=== PATIENT | male | born 1960 | race Two or more races ===

== ENCOUNTER 2018-01-23 10:32 | Observation (INO) | payer MEDICARE ==
[~2018-01-23] VITALS: Ht 167.6 cm; Wt 68.0 kg
[~2018-01-23 10:32] MED LIST: ASPI-1159 PO; ATOR10TA PO; TRAM50TA3 PO; VERA180T MT; ZOLP10TA2 PO
[2018-01-23] MEDS ORDERED: SODIUM CHLORIDE 0.9% 1,000 ML IV ONE (12:56)
[2018-01-23] MEDS ORDERED: MECLIZINE 25MG TABLET PO ONE (13:00)
[2018-01-23 13:43] LABS: BASOPHILS % 0.6 % (0.0-2.0); EOSINOPHILS % 1.2 % (0.0-5.0); HEMOGLOBIN. 13.5 g/dL (14.0-18.0); LYMPHOCYTES % 27.9 % (20.0-50.0); MEAN CORPUSCULAR HEMOGLOBIN 29.7 pg (28.0-32.0); MONOCYTES % 8.8 % (2.0-8.0); NEUTROPHILS % 61.5 % (40.0-76.0); RED BLOOD CELL COUNT 4.53 mill/uL (4.7-6.1); RED CELL DISTRIBUTION WIDTH 14.9 % (11.6-14.6)
[2018-01-23 13:44] LABS: PROTHROMBIN TIME 10.6 sec (9.4-11.6)
[2018-01-23 13:47] LABS: CHLORIDE 106 mEq/L (98-107)
[2018-01-23 13:58] LABS: CREATINE KINASE MB FRACTION 2.5 ng/mL (0.5-3.6)
[2018-01-23 14:12] LABS: PARTIAL THROMBOPLASTIN TIME < 20.0 sec (23.4-31.0)
[2018-01-23] MEDS ORDERED: ASPIRIN 325MG EC TABLET PO ONE (16:30)
[2018-01-23 18:13] LABS: *AMPHETAMINES SCREEN URINE NEGATIVE (NEGATIVE); *BARBITURATES SCREEN URINE NEGATIVE (NEGATIVE); *BENZODIAZEPINES SCREEN URINE NEGATIVE (NEGATIVE); *COCAINE SCREEN URINE NEGATIVE (NEGATIVE); CANNABINOID URINE SCREEN NEGATIVE (NEGATIVE); METHADONE URINE SCREEN NEGATIVE (NEGATIVE); OPIATES URINE SCREEN PRESUMTIVE POSITIVE (NEGATIVE); PHENCYCLIDINE URINE SCREEN NEGATIVE (NEGATIVE)
[2018-01-23 20:12] VITALS: BP 150/80
[2018-01-23 20:15] VITALS: BP 144/72
[2018-01-23] MEDS ORDERED: TRAMADOL 50MG TABLET PO PRN (22:15)
[2018-01-23] MEDS ORDERED: ACETAMINOPHEN 325MG TABLET PO PRN (22:30)
[2018-01-23] MEDS ORDERED: HYDRALAZINE 20MG/ML VIAL IV PRN (22:30)
[2018-01-23] MEDS ORDERED: ZOLPIDEM TARTRATE 5MG TABLET PO PRN (22:30)
[2018-01-23] MEDS ORDERED: DEXTROSE 50% WATER 50ML SYRINGE IV PRN (22:45)
[2018-01-23] MEDS ORDERED: ATORVASTATIN CALCIUM 10MG TABLET PO SCH (23:00)
[2018-01-23] MEDS: MECLIZINE 12.5MG TABLET PO SCH (23:04)
[2018-01-23] MEDS: AMLODIPINE 5MG TABLET PO SCH (23:05)
[2018-01-24] VITALS: BP 132/67
[2018-01-24 04:00] VITALS: BP 121/69
[2018-01-24] MEDS: BLOOD SUGAR DIAGNOSTIC STRIP TEST SCH ×3 (06:05→16:45)
[2018-01-24] MEDS: INSULIN LISPRO 100 UNITS/ML SUBCUT SCH ×3 (06:05→17:55)
[2018-01-24] MEDS: MECLIZINE 12.5MG TABLET PO SCH ×2 (06:28→15:50)
[2018-01-24] MEDS ORDERED: PANTOPRAZOLE 40MG DR TABLET PO SCH (06:45)
[2018-01-24 07:40] LABS: BASOPHILS % 0.5 % (0.0-2.0); EOSINOPHILS % 1.8 % (0.0-5.0); HEMATOCRIT. 40.3 % (42.0-52.0); HEMOGLOBIN. 13.6 g/dL (14.0-18.0); LYMPHOCYTES % 32.4 % (20.0-50.0); MEAN CORPUSCULAR HEMOGLOBIN 29.1 pg (28.0-32.0); MEAN CORPUSCULAR VOLUME 86.1 fL (80.0-94.0); MEAN PLATELET VOLUME 8.2 fl (7.4-10.4); MONOCYTES % 11.8 % (2.0-8.0); NEUTROPHILS % 53.5 % (40.0-76.0); PLATELET 244 x1000/uL (130-400); RED BLOOD CELL COUNT 4.68 mill/uL (4.7-6.1)
[2018-01-24 08:00] VITALS: BP 122/68
[2018-01-24 08:06] LABS: CHLORIDE 105 mEq/L (98-107)
[2018-01-24 08:11] LABS: HDL CHOLESTEROL 49 mg/dL (40-59); LDL CHOLESTEROL 91 mg/dL (5-100)
[2018-01-24] MEDS: AMLODIPINE 5MG TABLET PO SCH (08:12)
[2018-01-24] MEDS ORDERED: ASPIRIN 81MG EC TABLET PO SCH (09:00)
[2018-01-24] MEDS ORDERED: AMLO2.5T45 PO ×2 (11:26)
[2018-01-24] MEDS ORDERED: HYDR-4001 PO (11:26)
[2018-01-24] MEDS ORDERED: GABA-529 PO (11:26)
[2018-01-24] MEDS ORDERED: METO-539 PO (11:26)
[2018-01-24] MEDS ORDERED: OMEP20CA10 PO (11:26)
[2018-01-24] MEDS ORDERED: INSLIS SUBCUT (11:28)
[2018-01-24] MEDS ORDERED: LEVVL SQ (11:28)
[2018-01-24 12:00] VITALS: BP 132/77
[2018-01-24] MEDS ORDERED: NITROGLYCERIN 0.4MG TABLET SL SL PRN (14:30)
[2018-01-24 16:00] VITALS: BP 112/65
[2018-01-24 17:30] LABS: AMMONIA 70 uMol/L (<32)
[2018-01-24 18:17] VITALS: BP 139/91
== END 2018-01-24 20:36 | disposition home or self-care (01) ==
LOC: ER 10:32 → EDBEDREQ 13:03 → ENRESERV 18:50 → INTOOBSV 21:25 → 5WST 21:25
PROVIDERS: ADMIT Internal Medicine; ATTEND Internal Medicine
DX: F31.9 Bipolar disorder, unspecified (principal); I25.110 Atherosclerotic heart disease of native coronary artery with unstable angina pectoris; R00.1 Bradycardia, unspecified; R42 Dizziness and giddiness; D64.9 Anemia, unspecified; E11.65 Type 2 diabetes mellitus with hyperglycemia; I10 Essential (primary) hypertension; I25.2 Old myocardial infarction; M19.90 Unspecified osteoarthritis, unspecified site; Z79.4 Long term (current) use of insulin; Z79.82 Long term (current) use of aspirin; Z79.899 Other long term (current) drug therapy; Z86.711 Personal history of pulmonary embolism; Z91.19 Patient's noncompliance with other medical treatment and regimen
CPT/HCPCS: 36415; 70450; 71045; 80048; 80053; 80061; 80305; 82140; 82553; 82962; 83880; 84484; 85025; 85610; 85730; 93005; 96360; 96372; 99285; G0378; J1815; J7030; J8597

== ENCOUNTER 2018-02-09 23:52 | Emergency (ER) | payer MEDICARE ==
[~2018-02-09] VITALS: Ht 167.6 cm; Wt 150.0 kg
[~2018-02-09 23:52] MED LIST changes: +AMLO2.5T45 PO; +GABA-529 PO; +HYDR-4001 PO; +INSLIS SUBCUT; +LEVVL SQ; +OMEP20CA10 PO
[2018-02-10 00:52] LABS: BASOPHILS % 0.6 % (0.0-2.0); EOSINOPHILS % 1.4 % (0.0-5.0); HEMATOCRIT. 38.1 % (42.0-52.0); LYMPHOCYTES % 32.7 % (20.0-50.0); MEAN CORPUSCULAR HEMOGLOBIN 29.4 pg (28.0-32.0); MEAN CORPUSCULAR VOLUME 86.2 fL (80.0-94.0); MEAN PLATELET VOLUME 7.6 fl (7.4-10.4); MONOCYTES % 9.3 % (2.0-8.0); PLATELET 235 x1000/uL (130-400); RED BLOOD CELL COUNT 4.42 mill/uL (4.7-6.1); RED CELL DISTRIBUTION WIDTH 14.2 % (11.6-14.6)
[2018-02-10 00:55] LABS: CHLORIDE 102 mEq/L (98-107)
[2018-02-10 00:56] LABS: PROTHROMBIN TIME 10.1 sec (9.4-11.6)
[2018-02-10 01:00] LABS: ETHANOL BLOOD 40 mg/dL
[2018-02-10 01:02] LABS: AMMONIA 37 uMol/L (<32)
[2018-02-10] MEDS ORDERED: KETOROLAC 15MG/ML VIAL IV ONE (04:45)
[2018-02-10 08:28] VITALS: BP 158/96
== END 2018-02-10 08:29 | disposition home or self-care (01) ==
LOC: ER 23:52
DX: G93.40 Encephalopathy, unspecified (principal); F03.90 Unspecified dementia, unspecified severity, without behavioral disturbance, psychotic disturbance, mood disturbance, and anxiety; E11.9 Type 2 diabetes mellitus without complications; I10 Essential (primary) hypertension; I25.2 Old myocardial infarction; Z79.4 Long term (current) use of insulin; Z88.0 Allergy status to penicillin; Z88.5 Allergy status to narcotic agent; Z95.0 Presence of cardiac pacemaker; Z95.5 Presence of coronary angioplasty implant and graft; Z79.82 Long term (current) use of aspirin
CPT/HCPCS: 36415; 70450; 71045; 80053; 80307; 80329; 82140; 82962; 84484; 85025; 85610; 93005; 96374; 99285; G0482; J1885

== ENCOUNTER 2018-03-19 06:13 | Emergency (ER) | payer MEDICARE ==
[~2018-03-19] VITALS: Ht 175.3 cm; Wt 91.0 kg
[2018-03-19] MEDS ORDERED: SODIUM CHLORIDE 0.9% 1000ML BAG (SEPSIS BOLUS) IV ONE (07:45)
[2018-03-19 08:10] LABS: CLARITY URINE CLEAR (CLEAR); COLOR URINE YELLOW (YELLOW); KETONES URINE NEGATIVE (NEGATIVE); LEUKOCYTE ESTERASE URINE NEGATIVE (NEGATIVE); NITRITE URINE NEGATIVE (NEGATIVE); OCCULT BLOOD URINE NEGATIVE (NEGATIVE); PH URINE 7.5 (4.5-8.0); PROTEIN URINE NEGATIVE (NEGATIVE); SPECIFIC GRAVITY URINE 1.017 (1.005-1.030); UROBILINOGEN URINE 0.2 E.U./dL (0.2-1.0)
[2018-03-19 08:13] LABS: CHLORIDE 101 mEq/L (98-107)
[2018-03-19 08:15] LABS: INR 1.1; PROTHROMBIN TIME 11.4 sec (9.4-11.6)
[2018-03-19 08:23] LABS: BASOPHILS % 0.4 % (0.0-2.0); EOSINOPHILS % 0.1 % (0.0-5.0); HEMOGLOBIN. 14.7 g/dL (14.0-18.0); LYMPHOCYTES % 19.5 % (20.0-50.0); MEAN CORPUSCULAR VOLUME 84.7 fL (80.0-94.0); MEAN PLATELET VOLUME 7.6 fl (7.4-10.4); MONOCYTES % 9.9 % (2.0-8.0); NEUTROPHILS % 70.1 % (40.0-76.0); PLATELET 255 x1000/uL (130-400); RED BLOOD CELL COUNT 5.08 mill/uL (4.7-6.1)
[2018-03-19 09:09] LABS: BG BASE EXCESS 1.9 mmol/L (-2.0-2.0); BG DEOXYHEMOGLOBIN 4.3 % (0.0-5.0); BG FRACTION INSPIRED OXYGEN 21; BG HCO3 ACT 24.9 mmol/L (22.0-26.0); BG METHEMOGLOBIN 0.4 % (0.0-1.5); BG OXYGEN SATURATION 95.6 % (92.0-98.5); BG OXYHEMOGLOBIN 94.3 % (94.0-97.0); BG PCO2 34.5 mmHg (35.0-45.0); BG PH 7.476 (7.350-7.450); BG PO2 73.2 mmHg (75.0-100.0); BG SAMPLE SITE RIGHT RADIAL; BG TOTAL HEMOGLOBIN 16.6 g/dL (12.0-18.0); BG VENT MODE ROOM AIR
[2018-03-19 14:44] VITALS: BP 128/69
== END 2018-03-19 15:12 | disposition home or self-care (01) ==
LOC: ER 06:13 → CANBEDREQ 15:44
DX: R56.9 Unspecified convulsions (principal); R42 Dizziness and giddiness; E11.9 Type 2 diabetes mellitus without complications; I10 Essential (primary) hypertension; I25.2 Old myocardial infarction; F14.10 Cocaine abuse, uncomplicated; F10.239 Alcohol dependence with withdrawal, unspecified; E87.2 Acidosis; R29.810 Facial weakness; Z79.4 Long term (current) use of insulin; Z79.82 Long term (current) use of aspirin; Z88.0 Allergy status to penicillin; Z88.5 Allergy status to narcotic agent; Z95.0 Presence of cardiac pacemaker; Y90.8 Blood alcohol level of 240 mg/100 ml or more
CPT/HCPCS: 36415; 36600; 70450; 71045; 80053; 81003; 82375; 82805; 83605; 85025; 85610; 87040; 87077; 87086; 93005; 96360; 96361; 99291; J7030

== ENCOUNTER 2018-03-19 17:47 | Emergency (ER) | payer MEDICARE ==
[~2018-03-19] VITALS: Ht 172.7 cm; Wt 80.0 kg
[2018-03-19 17:49] VITALS: BP 175/74
== END 2018-03-19 18:15 | disposition left against medical advice (07) ==
LOC: ER 18:02
DX: R56.9 Unspecified convulsions (principal); Z53.21 Procedure and treatment not carried out due to patient leaving prior to being seen by health care provider